=== PATIENT | male | born 1970 ===

== ENCOUNTER 2023-11-30 08:23 | Day surgery (SDC) | payer BC ==
[~2023-11-30] VITALS: Ht 180.3 cm; Wt 132.6 kg
[~2023-11-30 08:23] MED LIST: ACET325; CEPH500 PO; HYDACE5 PO; Lactated Ringer's 1,000 ML IV ONE; Lidocaine 1%-Epineph 1:100000 20 ML MDV ONE; NEOCOLOTSU OT
[2023-11-30] MEDS ORDERED: Lactated Ringer's 1,000 ML IV ONE (09:28)
[2023-11-30] MEDS ORDERED: Midazolam HCl 1MG / ML 2ML Vial ONE (09:35)
[2023-11-30] MEDS ORDERED: EPINEPhrine HCl 1 MG / ML 30ML Vial ONE (09:37)
[2023-11-30] MEDS ORDERED: Bupivacaine 0.5% HCl 5 MG/ML 30MLVIAL ONE (09:38)
[2023-11-30] MEDS ORDERED: CeFAZolin Sodium 3,000 MG in NS 100 ML IV SCH (09:40)
--- NOTE | 2023-11-30 09:56 | NUR ---
11/30/23 0956 Leanne Crawley PRE-OP INJECTION OF 10 CC LIDOCAINE 1% WITH EPI 1:100,[address] PAN AT 0946
[2023-11-30] MEDS ORDERED: propofoL 20 ML IV ONE (10:03)
== END 2023-11-30 11:00 | disposition home or self-care (01) ==
LOC: ORSCSDS 08:23
PROVIDERS: Orthopaedic Surgery
PROC: 01N50ZZ Release Median Nerve, Open Approach (ICD-10-PCS; principal; 2023-11-30 10:00)
DX: G56.03 Carpal tunnel syndrome, bilateral upper limbs (principal); Z68.41 Body mass index [BMI] 40.0-44.9, adult; F17.220 Nicotine dependence, chewing tobacco, uncomplicated
CPT/HCPCS: J0171; J0690; J2250; J2704; J7120

== ENCOUNTER 2024-01-18 07:31 | Day surgery (SDC) | payer BC ==
[~2024-01-18] VITALS: Ht 180.3 cm; Wt 132.1 kg
[~2024-01-18 07:31] MED LIST changes: -Lidocaine 1%-Epineph 1:100000 20 ML MDV ONE
[2024-01-18] MEDS ORDERED: FentaNYL Citrate 50 MCG/ML 2 ML Injection ONE (08:14)
[2024-01-18] MEDS ORDERED: Midazolam HCl 1MG / ML 2ML Vial ONE (08:14)
[2024-01-18] MEDS ORDERED: Lactated Ringer's 1,000 ML IV ONE ×2 (08:17→08:37)
[2024-01-18] MEDS ORDERED: CeFAZolin Sodium 2,000 MG VIAL ONE (08:25)
[2024-01-18] MEDS ORDERED: NS 50 ML IV ONE (08:25)
[2024-01-18] MEDS ORDERED: CeFAZolin Sodium 1000 mg Vial ONE (08:39)
--- NOTE | 2024-01-18 08:39 | NUR ---
01/18/24 0839 Asia Rolle TIME OUT PERFORMED AT BEDSIDE AT [address] PAN PRIOR TO INJECTION OF 10ML 2% LIDOCAINE WITH EPI [id number]. INJECTED STARTED AT 0805 AND ENDED AT 0807. PT TOLERATED PROCEDURE WELL.
== END 2024-01-18 09:37 | disposition home or self-care (01) ==
LOC: ORSCSDS 07:31
PROVIDERS: Orthopaedic Surgery
PROC: 01N50ZZ Release Median Nerve, Open Approach (ICD-10-PCS; principal; 2024-01-18 09:00)
DX: G56.02 Carpal tunnel syndrome, left upper limb (principal); E66.01 Morbid (severe) obesity due to excess calories; Z68.41 Body mass index [BMI] 40.0-44.9, adult
CPT/HCPCS: J0690; J2250; J3010; J7120